=== PATIENT | male | born 1965 | race Caucasian/White ===

== ENCOUNTER 2019-03-25 10:45 | Emergency (ER) | payer OTHER ==
[2019-03-25 11:20] VITALS: BP 118/83; PULSE 78; RESP 18; TEMP 98.3
[2019-03-25] MEDS ORDERED: ERYTHROMYCIN 5 MG/GM OPHTH OINT 3.5 GM TUBE RIGHT EYE STA (11:31)
[2019-03-25] MEDS ORDERED: PROPARACAINE 0.5% OPHTH DROPS 15 ML BTL RIGHT EYE STA (11:32)
--- NOTE | 2019-03-25 12:10 | ED ---
General Adult HPI - General Chief complaint: Eye Problems Stated complaint: rt eye problem Time Seen by Provider: 03/25/19 11:31 Source: patient, RN notes reviewed Mode of arrival: ambulatory Limitations: no limitations - History of Present Illness Initial comments: Camilo is a 53-year-old male with the chief complaint of right eye irritation. Patient states he had some drainage out of the right eye when he woke up this morning. RIght lower lid is also a little bit painful to. Patient states he has surgery scheduled for a lipoma removal in a couple days so he came because he was told if he has any infection he cannot have his surgery. Denies any visual changes. Denies any pain of the eye itself.Patient has no other complaints at this time including shortness of breath, chest pain, abdominal pain, nausea or vomiting, headache, or visual changes. - Related Data Home Medications Medication Instructions Recorded Confirmed Gabapentin 600 mg PO TID 03/23/19 03/23/19 Ibuprofen 800 mg PO Q8H 03/23/19 03/23/19 Loratadine [Claritin] 10 mg PO DAILY 03/23/19 03/23/19 Sertraline [Zoloft] 50 mg PO DAILY 03/23/19 03/23/19 Tamsulosin [Flomax] 0.4 mg PO DAILY 03/23/19 03/23/19 hydrOXYzine HCL [Atarax] 25 mg PO HS 03/23/19 03/23/19 tiZANidine [Zanaflex] 4 mg PO TID 03/23/19 03/23/19 Allergies Allergy/AdvReac Type Severity Reaction Status Date / Time tetanus and diphtheria Allergy as Verified 03/23/19 14:18 toxoids child,when cultured on egg; No further problems since RUBBER Allergy Severe Swelling Uncoded 03/23/19 14:18 of mouth with dental bands years ago Review of Systems ROS Statement: Those systems with pertinent positive or pertinent negative responses have been documented in the HPI. ROS Other: All systems not noted in ROS Statement are negative. Past Medical History Past Medical History: Hearing Disorder / Deafness, Musculoskeletal Disorder, Prostate Disorder Additional Past Medical History / Comment(s): RECENT BRAIN ANEURYSM FOUND ON MRI. HX 200# FALL ONTO HEAD IN 2016, HAS BAD HEADACHES, COMPRESSED CERVICAL VERTEBRAES C 1-2, 3-6. "OCC BLACK OUTS." HAD PAIN INJECTION IN HIP 03/22/19. LT ARM LIPOMA. SOME HEARING LOSS. BPH. History of Any Multi-Drug Resistant Organisms: None Reported Past Surgical History: Orthopedic Surgery Additional Past Surgical History / Comment(s): COLONOSCOPY. DAYTON BICEPS RECONNECTED. RT KNEE SCOPE X3. EXC CYST IN NECK. PENILE OPENING ENLARGED. INJECTIONS IN BRAIN, NECK. Past Anesthesia/Blood Transfusion Reactions: Motion Sickness Additional Past Anesthesia/Blood Transfusion Reaction / Comment(s): SICKNESS ON LARGE SHIP Past Psychological History: ADD/ADHD, Anxiety, Depression Smoking Status: Current some day smoker Past Alcohol Use History: None Reported Past Drug Use History: None Reported - Past Family History Mother Family Medical History: Cancer Additional Family Medical History / Comment(s): COLON CA General Exam Limitations: no limitations General appearance: alert, in no apparent distress Head exam: Present: atraumatic, normocephalic, normal inspection Eye exam: Present: PERRL, EOMI, periorbital swelling (Patient has a small subcentimeter hordeolum noted of the right lower medial eyelid. ). Absent: scleral icterus, conjunctival injection ENT exam: Present: normal exam, mucous membranes moist Neck exam: Present: normal inspection. Absent: tenderness, meningismus, lymphadenopathy Respiratory exam: Present: normal lung sounds bilaterally. Absent: respiratory distress, wheezes, rales, rhonchi, stridor Cardiovascular Exam: Present: regular rate, normal rhythm, normal heart sounds. Absent: systolic murmur, diastolic murmur, rubs, gallop, clicks Neurological exam: Present: alert, oriented X3, CN II-XII intact Psychiatric exam: Present: normal affect, normal mood Course Vital Signs 03/25/19 11:17 Temperature 98.3 F Pulse Rate 78 Respiratory 18 Rate Blood Pressure 118/83 O2 Sat by Pulse 98 Oximetry Medical Decision Making - Medical Decision Making 53-year-old male presents to the emergency department for a chief complaint of right lower eyelid pain. Patient states he woke up today and he had crusting in his eye. On exam patient has hordeolum noted to the right medial lower eyelid. No erythema of the conjunctiva. The eye was stained with fluorescein stain, no evidence of abrasion or ulcer. The eye otherwise appears normal. Discussed warm compresses. Patient will be given erythromycin ointment to help soften this thigh as well as prevent further infection. Patient will follow up with primary care in 1-2 days. He will return here if he has any worsening symptoms. Disposition Clinical Impression: Hordeolum Disposition: HOME SELF-CARE Condition: Good Instructions (If sedation given, give patient instructions): Stye (ED), Warm Compress or Soak (ED) Additional Instructions: Please apply warm compresses to the left eye multiple times daily. You may use ointment for comfort 4 times daily for up to 7 days. Follow up with primary care in 1-2 days. Return here for having worsening symptoms. Is patient prescribed a controlled substance at d/c from ED?: No Referrals: Evelyne Celaya MD [Primary Care Provider] - 1-2 days Time of Disposition: 12:10
== END 2019-03-25 12:23 | disposition home or self-care (01) ==
LOC: EC 10:45
DX: H00.012 Hordeolum externum right lower eyelid (principal); H91.90 Unspecified hearing loss, unspecified ear; N40.0 Benign prostatic hyperplasia without lower urinary tract symptoms; F90.9 Attention-deficit hyperactivity disorder, unspecified type; F32.9 Major depressive disorder, single episode, unspecified; F41.9 Anxiety disorder, unspecified; Z86.018 Personal history of other benign neoplasm; F17.200 Nicotine dependence, unspecified, uncomplicated; Z79.1 Long term (current) use of non-steroidal anti-inflammatories (NSAID); Z79.899 Other long term (current) drug therapy; Z88.7 Allergy status to serum and vaccine; Z91.048 Other nonmedicinal substance allergy status
CPT/HCPCS: 99282

== ENCOUNTER 2019-03-27 05:44 | Day surgery (SDC) | payer OTHER ==
[2019-03-23 14:54] VITALS: BMI 29.9
[~2019-03-27 05:44] MED LIST: HEPARIN SODIUM,PORCINE 5,000 UNIT/ML 1 ML VIAL SQ ONE; LACTATED RINGERS 1,000 ML IV SCH; LIDOCAINE 1% 20 ML VIAL (10MG/ML) FOR IV START INTRADERMA PRN; Pre Op ABX Message 1 EACH MISC MISCELLANE ONE
[2019-03-27 06:43] VITALS: TEMP 98.6
[2019-03-27] MEDS ORDERED: BUPIVACAINE (PF) 0.25% 30 ML VIAL SQ ONE ×3 (07:32→08:15)
[2019-03-27] MEDS ORDERED: MIDAZOLAM 2 MG/2 ML VIAL ONE (07:49)
[2019-03-27] MEDS ORDERED: PROPOFOL 10 MG/ML 20 ML VIAL IV ONE (07:49)
[2019-03-27] MEDS ORDERED: fentaNYL (PF) 50 MCG/ML 2 ML AMP ONE (07:49)
[2019-03-27] MEDS ORDERED: KETAMINE 10 MG/ML 20 ML VIAL ONE (07:49)
--- NOTE | 2019-03-27 07:56 | P.GSHP ---
History of Present Illness H&P Date: 03/27/19 Chief Complaint: Left arm lipoma This a 53-year-old male who has developed a left arm lipoma just above his elbow. Patient points of pain and tenderness at the mass. Past Medical History Past Medical History: Hearing Disorder / Deafness, Musculoskeletal Disorder, Prostate Disorder Additional Past Medical History / Comment(s): RECENT BRAIN ANEURYSM FOUND ON MRI. HX 200# FALL ONTO HEAD IN 2016, HAS BAD HEADACHES, COMPRESSED CERVICAL VERTEBRAES C 1-2, 3-6. "OCC BLACK OUTS." HAD PAIN INJECTION IN HIP 03/22/19. LT ARM LIPOMA. SOME HEARING LOSS. BPH. History of Any Multi-Drug Resistant Organisms: None Reported Past Surgical History: Orthopedic Surgery Additional Past Surgical History / Comment(s): COLONOSCOPY. DAYTON BICEPS NANCY NNECTED. RT KNEE SCOPE X3. EXC CYST IN NECK. PENILE OPENING ENLARGED. INJECTIONS IN BRAIN, NECK. Past Anesthesia/Blood Transfusion Reactions: Motion Sickness Additional Past Anesthesia/Blood Transfusion Reaction / Comment(s): SICKNESS ON LARGE SHIP Past Psychological History: ADD/ADHD, Anxiety, Depression Smoking Status: Current some day smoker Past Alcohol Use History: None Reported Past Drug Use History: None Reported - Past Family History Mother Family Medical History: Cancer Additional Family Medical History / Comment(s): COLON CA Medications and Allergies Home Medications Medication Instructions Recorded Confirmed Type Gabapentin 600 mg PO TID 03/23/19 03/27/19 History Ibuprofen 800 mg PO Q8H 03/23/19 03/27/19 History Loratadine [Claritin] 10 mg PO DAILY 03/23/19 03/27/19 History Sertraline [Zoloft] 50 mg PO DAILY 03/23/19 03/27/19 History Tamsulosin [Flomax] 0.4 mg PO DAILY 03/23/19 03/27/19 History hydrOXYzine HCL [Atarax] 25 mg PO HS 03/23/19 03/27/19 History tiZANidine [Zanaflex] 4 mg PO TID 03/23/19 03/27/19 History Allergies Allergy/AdvReac Type Severity Reaction Status Date / Time tetanus and diphtheria Allergy as Verified 03/27/19 06:37 toxoids child,when cultured on egg; No further problems since RUBBER Allergy Severe Swelling Uncoded 03/27/19 06:37 of mouth with dental bands years ago Surgical - Exam Vital Signs Temp Pulse Resp BP Pulse Ox 98.6 F 72 16 122/72 97 03/27/19 06:42 03/27/19 06:42 03/27/19 06:42 03/27/19 06:42 03/27/19 06:42 - General well developed, well nourished, no distress - Eyes PERRL - ENT normal pinna - Neck no masses - Respiratory normal expansion - Cardiovascular Rhythm: regular - Abdomen Abdomen: soft, non tender - Integumentary 3 separate lipoma located just above the elbow left arm.
[2019-03-27 08:34] VITALS: PULSE 64
[2019-03-27 09:11] VITALS: BP 132/79; RESP 16
--- NOTE | 2019-03-30 14:01 | P.OP ---
Date of Procedure: 03/27/19 Preoperative Diagnosis: Left arm lipoma Postoperative Diagnosis: Left arm lipoma Procedure(s) Performed: Excision of left arm lipoma Anesthesia: MAC Surgeon: Afshin Echevarria Estimated Blood Loss (ml): 3 Pathology: other (Left arm lipoma) Condition: stable Disposition: PACU Description of Procedure: The patient's placed on the operating table in the supine position. His left arm was prepped and draped usual sterile fashion. The patient recently lipoma. The lipoma was located just above the elbow. Using 1% local Xylocaine the area was anesthetized. Then using a 15 blade the skin was incised and using blunt and sharp dissection with cautery the lipoma was dissected free. The specimens of pathology. The skin was closed interrupted 3-0 Monocryl suture. Dermabond was applied. Patient top she will well and was sent to recovery in stable condition.
== END 2019-03-27 09:23 | disposition home or self-care (01) ==
LOC: OR 05:44
PROVIDERS: ATTEND Surgery
DX: D17.22 Benign lipomatous neoplasm of skin and subcutaneous tissue of left arm (principal); H91.90 Unspecified hearing loss, unspecified ear; F17.210 Nicotine dependence, cigarettes, uncomplicated; Z80.0 Family history of malignant neoplasm of digestive organs; N40.0 Benign prostatic hyperplasia without lower urinary tract symptoms; F32.9 Major depressive disorder, single episode, unspecified; F90.9 Attention-deficit hyperactivity disorder, unspecified type; Z79.1 Long term (current) use of non-steroidal anti-inflammatories (NSAID); Z79.899 Other long term (current) drug therapy; Z88.7 Allergy status to serum and vaccine; Z88.8 Allergy status to other drugs, medicaments and biological substances
CPT/HCPCS: 88304; 11403; J2250; J1644; J3010; J2704

== ENCOUNTER → 2019-04-18 | Outpatient (CLI) | payer OTHER ==
--- NOTE | 2019-04-19 18:29 | CT ---
EXAMINATION TYPE: CT brain w con DATE OF EXAM: 04/18/2019 COMPARISON: [facility] labeled with the patient's pain 11/17/2018 INDICATION: Abnormal MRI. Headaches. DLP: 1100.8 mGycm, Automated exposure control for dose reduction was used. CONTRAST: 100 mL Isovue-300 CT of the brain is performed utilizing 3 mm thick sections through the posterior fossa and 3 mm thick sections through the remaining calvarium. Study is performed within 24 hours of arrival to the hosp ital. No abnormal hyperdensity is present to suggest an acute intracranial hemorrhage. No mass lesion is evident. No acute infarcts are evident. Pre and postcontrast imaging through the brain is unremarkable. Small amount of encephalomalacia of the right watershed region may be present. No abnormal enhancement evid ent. Attention is paid to the left clinoid. There is an aerated clinoid which can account for the appearan ce on the MRI examination. No suspicious aneurysm based on the CT images is evident. Ventricles and sulci are appropriate for the patient age. Paranasal sinuses and mastoid air cells within the [id number]-[id number] are clear. IMPRESSIONS: 1. No acute intracranial abnormality. 2. Aerated left clinoid accounts for the findings on MRI.
== END | disposition home or self-care (01) ==
LOC: RADCTMAIN 11:08
PROVIDERS: ATTEND Psychiatry & Neurology Neurology
DX: I67.1 Cerebral aneurysm, nonruptured (principal)
CPT/HCPCS: 70460; Q9967

== ENCOUNTER 2020-04-23 10:45 | Emergency (ER) | payer MEDICARE, OTHER ==
[2020-04-23] MEDS ORDERED: ASPIRIN 81 MG PO STA (11:12)
[2020-04-23 11:39] LABS: HCT 43.4 % (39.0-53.0); HGB 14.5 gm/dL (13.0-17.5); MCH 30.4 pg (25.0-35.0); MCHC 33.3 g/dL (31.0-37.0); MCV 91.3 fL (80.0-100.0); Mean Platelet Volume 6.7; Platelet Count 198 k/uL (150-450); RBC 4.76 m/uL (4.30-5.90); RDW 12.7 % (11.5-15.5); WBC 4.6 k/uL (3.8-10.6)
[2020-04-23 11:45] LABS: ALT 23 U/L (4-49); AST 32 U/L (17-59); African American GFR (CKD) >90 (>60 ml/min/1.73 sqM); Albumin 3.5 g/dL (3.5-5.0); Alkaline Phosphatase 49 U/L (38-126); Anion Gap 6 mmol/L; Blood Urea Nitrogen 15 mg/dL (9-20); Calcium 8.7 mg/dL (8.4-10.2); Carbon Dioxide 22 mmol/L (22-30); Chloride 109 mmol/L (98-107); Glucose 97 mg/dL (74-99); Magnesium 1.8 mg/dL (1.6-2.3); Non-African American GFR(CKD) >90 (>60 ml/min/1.73 sqM); Potassium 4.4 mmol/L (3.5-5.1); Sodium 137 mmol/L (137-145); Total Bilirubin 0.4 mg/dL (0.2-1.3); Total Protein 5.5 g/dL (6.3-8.2)
[2020-04-23 11:50] LABS: INR 0.9 (<1.2); Partial Thromboplastin Time 22.8 sec (22.0-30.0); Prothrombin Time 9.6 sec (9.0-12.0)
--- NOTE | 2020-04-23 11:50 | XR ---
EXAMINATION TYPE: XR chest 2V DATE OF EXAM: 04/23/2020 COMPARISON: None HISTORY: 54 year-old male chest pain TECHNIQUE: PA and lateral views FINDINGS: The cardiomediastinal silhouette, aorta, and pulmonary vasculature are within normal limits. Lungs an d pleural spaces are clear. Posterior simulator leads extend up beyond the [id number]. IMPRESSION: No acute cardiopulmonary process.
--- NOTE | 2020-04-23 12:06 | ED ---
Chest Pain HPI - General Chief Complaint: Chest Pain Stated Complaint: chest pain, swollen feet, poison ish Time Seen by Provider: 04/23/20 10:56 Source: patient Mode of arrival: ambulatory Limitations: no limitations - History of Present Illness Initial Comments: Patient is a 54-year-old male presenting to emergency Department with complaints of chest pain that has been intermittent throughout today as well as lower leg swelling. Patient states he's been having on and off chest pain for about 6 months lasting anywhere from a few seconds to a few minutes at a time. Patient describes it as tightening in the middle of his chest. He denies any radiation. He states he has not seen his doctor for these pains. Patient states today he had the pain again and it lasted longer than normal and then with the swelling of his ankles he decided to come into the ER. He denies history of heart disease, COPD, heart failure. He denies seeing a dirt shoveler. He states currently his chest pain is minimal, 2/10. He denies any trauma to his ankles. He does admit to some increasing shortness of breath over the past 6 months. He denies any coughing, denies fever or chills. He has no further complaints at this time. Upon arrival to the ER, his vital signs are stable. - Related Data Home Medications Medication Instructions Recorded Confirmed Ibuprofen 800 mg PO Q8H 03/23/19 04/23/20 Tamsulosin [Flomax] 0.4 mg PO DAILY 03/23/19 04/23/20 hydrOXYzine HCL [Atarax] 12.5 - 37.5 mg PO HS PRN 03/23/19 04/23/20 tiZANidine [Zanaflex] 4 mg PO Q6H 03/23/19 04/23/20 Butalbital/Aspirin/Caffeine 1 tab PO Q4H PRN 04/23/20 04/23/20 [Vbcwyg-Qoghrqs-Ghflmtgz 50-325-40 mg] Gabapentin [Neurontin] 900 mg PO TID 04/23/20 04/23/20 Sertraline [Zoloft] 150 mg PO DAILY 04/23/20 04/23/20 traZODone HCL 50 mg PO HS PRN 04/23/20 04/23/20 Allergies Allergy/AdvReac Type Severity Reaction Status Date / Time tetanus and diphtheria Allergy as Verified 04/23/20 12:06 toxoids child,when cultured on egg; No further problems since milk AdvReac GI UPSET Verified 04/23/20 12:09 RUBBER Allergy Severe Swelling Uncoded 03/27/19 06:37 of mouth with dental bands years ago Review of Systems ROS Statement: Those systems with pertinent positive or pertinent negative responses have been documented in the HPI. ROS Other: All systems not noted in ROS Statement are negative. EKG Findings - EKG Comments: EKG Findings:: Normal sinus rhythm, normal ECG, no signs of acute ischemia. Ventricular rate 72, KS interval 174, QT 390. Past Medical History Past Medical History: Hearing Disorder / Deafness, Musculoskeletal Disorder, Prostate Disorder Additional Past Medical History / Comment(s): RECENT BRAIN ANEURYSM FOUND ON MRI. HX 200# FALL ONTO HEAD IN 2016, HAS BAD HEADACHES, COMPRESSED CERVICAL VERTEBRAES C 1-2, 3-6. "OCC BLACK OUTS." HAD PAIN INJECTION IN HIP 03/22/19. LT ARM LIPOMA. SOME HEARING LOSS. BPH. History of Any Multi-Drug Resistant Organisms: None Reported Past Surgical History: Orthopedic Surgery Additional Past Surgical History / Comment(s): COLONOSCOPY. DAYTON BICEPS RECONNECTED. RT KNEE SCOPE X3. EXC CYST IN NECK. PENILE OPENING ENLARGED. INJECTIONS IN BRAIN, NECK. Past Anesthesia/Blood Transfusion Reactions: Motion Sickness Additional Past Anesthesia/Blood Transfusion Reaction / Comment(s): SICKNESS ON LARGE SHIP Past Psychological History: ADD/ADHD, Anxiety, Depression Smoking Status: Never smoker Past Alcohol Use History: None Reported Past Drug Use History: Marijuana - Past Family History Mother Family Medical History: Cancer Additional Family Medical History / Comment(s): COLON CA General Exam - General Exam Comments Initial Comments: GENERAL: Patient is well-developed and well-nourished. Patient is nontoxic and in no acute distress. HEAD: Atraumatic, normocephalic. EYES: Pupils equal round and reactive to light, extraocular movements intact, sclera anicteric, conjunctiva are normal. Eyelids were unremarkable. ENT: TMs normal, nares patent, oropharynx clear without exudates. Moist mucous membranes. NECK: Normal range of motion, supple without lymphadenopathy or JVD. LUNGS: Unlabored respirations. Breath sounds clear to auscultation bilaterally and equal. No wheezes rales or rhonchi. HEART: Regular rate and rhythm without murmurs, rubs or gallops. ABDOMEN: Soft, nontender, normoactive bowel sounds. No guarding, no rebound. No masses appreciated. : Deferred MUSCULOSKELETAL: Mild Bilateral lower leg edema. Normal extremities with adequate strength and normal range of motion. No clubbing or cyanosis. NEUROLOGICAL: Patient is alert and oriented x 3. Motor and sensory are also intact. Cranial nerves II through XII grossly intact. Symmetrical smile. Normal speech, normal gait. PSYCH: Normal mood, normal affect. SKIN: Warm, Dry, normal turgor, no rashes or lesions noted. Limitations: no limitations Course Vital Signs 04/23/20 04/23/20 10:54 12:13 Temperature 98.1 F Pulse Rate 79 77 Respiratory 16 16 Rate Blood Pressure 115/88 115/89 O2 Sat by Pulse 99 95 Oximetry Chest Pain [facility] Patient is a 54-year-old male here for chest pain that has been intermittent for the last 6 months but was lasting longer today. He is also having some bilateral lower leg edema and shortness of breath with exertion. His vital signs are stable. Exam is unremarkable. Chest x-ray shows no acute process, EKG appears normal, no signs of acute ischemia. Lab work is unremarkable, troponin is normal, BNP is normal. Given patient's complaints of chest pain, no recent heart workup, recommended admission with cardiac consult. Patient is agreement with this plan of care. We will obtain serial troponins, cardiac consult. Patient was accepted by Dr. Felix. Case discussed with Dr. Kovacs. Disposition Clinical Impression: Chest pain Disposition: ADMITTED IP TO THIS HOSP Condition: Stable Is patient prescribed a controlled substance at d/c from ED?: No Referrals: Warren Manning [Primary Care Provider] - 1-2 days Decision Date: 04/23/20 Decision Time: 13:00
[2020-04-23 12:43] LABS: Eosinophils # (M) 0.05 k/uL (0-0.7); Lymphocytes # (M) 1.38 k/uL (1.0-4.8); Monocytes # (M) 0.37 k/uL (0-1.0); Neutrophils # (M) 2.81 k/uL (1.3-7.7); Neutrophils % (M) 61 %; Nucleated Red Blood Cells 0 /100 WBC (0-0); Total Cells Counted 100
[2020-04-23] MEDS ORDERED: NITROGLYCERIN SL TABS 0.4 MG TAB SUBLINGUAL PRN (12:53)
[2020-04-23] MEDS ORDERED: methylPREDNISolone SOD SUCCI 125 MG/2 ML VIAL IM ONE (13:22)
[2020-04-23 13:27] VITALS: BP 127/84; PULSE 67; RESP 18; TEMP 97.7
[2020-04-24] MEDS ORDERED: ASPIRIN 325 MG TAB PO SCH (09:00)
== END 2020-04-23 13:37 | disposition other institution (70) ==
LOC: EC 10:45
DX: R07.9 Chest pain, unspecified (principal); M79.89 Other specified soft tissue disorders; R60.0 Localized edema; R06.02 Shortness of breath; N40.0 Benign prostatic hyperplasia without lower urinary tract symptoms; F41.9 Anxiety disorder, unspecified; F32.9 Major depressive disorder, single episode, unspecified; F90.9 Attention-deficit hyperactivity disorder, unspecified type; Z79.899 Other long term (current) drug therapy; Z88.7 Allergy status to serum and vaccine; Z91.011 Allergy to milk products; Z91.048 Other nonmedicinal substance allergy status
CPT/HCPCS: 36415; 93005; 83880; 80053; 83735; 84484; 85025; 85610; 85730; 71046; 99285; 96372; J2930

== ENCOUNTER → 2021-05-25 | Outpatient (CLI) | payer MEDICARE | END | disposition home or self-care (01) | LOC: LABWHC1 13:14 | PROVIDERS: ATTEND Psychiatry & Neurology Neurology | DX: Z01.818 Encounter for other preprocedural examination (principal); Z20.822 Contact with and (suspected) exposure to COVID-19 | CPT/HCPCS: U0003; C9803 ==

== ENCOUNTER → 2021-09-01 | Outpatient (CLI) | payer OTHER ==
[2021-09-01 17:05] LABS: Partial Thromboplastin Time 23.1 sec (22.0-30.0); Prothrombin Time 10.5 sec (9.0-12.0)
[2021-09-01 17:27] LABS: Appearance,Urine Cloudy (Clear); Bilirubin,Urine 1+ (Negative); Blood,Urine Negative (Negative); Color,Urine Yellow; Glucose,Urine (UA) Negative (Negative); Hyaline Casts,Urine 54 /lpf (0-2); Ketones,Urine Trace (Negative); Leukocyte Esterase,Urine Negative (Negative); Mucus,Urine Many /hpf; Nitrite,Urine Negative (Negative); Protein,Urine 3+ (Negative); RBC,Urine 12 /hpf (0-5); Specific Gravity,Urine 1.041 (1.001-1.035); Squamous Epithelial Cell,Urine 2 /hpf (0-4); WBC,Urine 2 /hpf (0-5)
[2021-09-01 23:10] LABS: Basophils # (A) 0.05 X 10*3/uL (0.00-0.10); Basophils % (A) 0.6 %; Eosinophils # (A) 0.23 X 10*3/uL (0.04-0.35); HCT 51.1 % (39.6-50.0); HGB 17.1 g/dL (13.0-17.0); Lymphocytes # (A) 2.05 X 10*3/uL (0.90-5.00); Lymphocytes % (A) 26.5 %; MCH 30.2 pg (27.0-32.0); MCHC 33.5 g/dL (32.0-37.0); MCV 90.1 fL (80.0-97.0); Mean Platelet Volume 9.1 fL (9.5-12.2); Monocytes # (A) 0.48 X 10*3/uL (0.20-1.00); Monocytes % (A) 6.2 %; Neutrophils # (A) 4.91 X 10*3/uL (1.80-7.70); Neutrophils % (A) 63.3 %; Platelet Count 261 X 10*3/uL (140-440); RBC 5.67 X 10*6/uL (4.40-5.60); RDW 13.2 % (11.5-14.5); WBC 7.75 X 10*3/uL (4.50-10.00)
[2021-09-02 01:20] LABS: ALT 16 U/L (10-49); AST 18 U/L (14-35); African American GFR (CKD) 98.3 (60.0-200.0); Albumin 4.3 g/dL (3.8-4.9); Albumin/Globulin Ratio 2.16 (1.60-3.17); Alkaline Phosphatase 61 U/L (41-126); BUN/Creat Ratio 12.83 Ratio (12.00-20.00); Blood Urea Nitrogen 12.7 mg/dL (9.0-27.0); Calcium 9.3 mg/dL (8.7-10.3); Carbon Dioxide 21.5 mmol/L (20.0-27.5); Chloride 106 mmol/L (96-109); Glucose 88 mg/dL (70-110); Non-African American GFR(CKD) 84.8 (60.0-200.0); Potassium 4.5 mmol/L (3.5-5.5); Sodium 141 mmol/L (135-145); Total Bilirubin <0.20 mg/dL (0.30-1.20); Total Protein 6.3 g/dL (6.2-8.2)
== END | disposition home or self-care (01) ==
LOC: LABWHC1 15:24
PROVIDERS: ATTEND Neurological Surgery
DX: G90.513 Complex regional pain syndrome I of upper limb, bilateral (principal); M54.2 Cervicalgia
CPT/HCPCS: 36415; 80053; 81001; 85025; 85610; 85730

== ENCOUNTER → 2021-09-15 | Outpatient (CLI) | payer MEDICARE | END | disposition home or self-care (01) | LOC: LABWHC1 10:20 | PROVIDERS: ATTEND Neurological Surgery | DX: G90.513 Complex regional pain syndrome I of upper limb, bilateral (principal); M54.2 Cervicalgia ==

== ENCOUNTER 2022-12-10 06:46 | Inpatient (IN) | payer MEDICARE ==
[~2022-12-10 06:46] MED LIST changes: +ACETAMINOPHEN TAB 500 MG TAB PO PRN; +DEXAMETHASONE SOD PHOSPHATE 4 MG/ML 1 ML VIAL IV ONE; -HEPARIN SODIUM,PORCINE 5,000 UNIT/ML 1 ML VIAL SQ ONE; +HEPARIN SODIUM,PORCINE/PF 5,000 UNIT/0.5 ML SYRINGE SQ PRN; -LACTATED RINGERS 1,000 ML IV SCH; +LIDOCAINE 1% (10MG/ML) FOR IV START INTRADERMA PRN; -LIDOCAINE 1% 20 ML VIAL (10MG/ML) FOR IV START INTRADERMA PRN; +ONDANSETRON 4 MG/2 ML VIAL IVP ONE; -Pre Op ABX Message 1 EACH MISC MISCELLANE ONE
[2022-12-10] MEDS ORDERED: METOCLOPRAMIDE 5 MG/ML 2 ML VIAL IVP PRN (07:00)
[2022-12-10] MEDS ORDERED: HYDROmorphone 0.5 MG/0.5 ML SYRINGE IVP PRN ×2 (07:00→10:17)
[2022-12-10 07:31] LABS: Glucose,Whole Blood 97 mg/dL (70-110)
[2022-12-10] MEDS: LACTATED RINGERS 1,000 ML IV SCH (07:37)
[2022-12-10] MEDS ORDERED: MIDAZOLAM 2 MG/2 ML VIAL IVP ONE (08:26)
--- NOTE | 2022-12-10 08:35 | P.GSHP ---
History of Present Illness H&P Date: 12/10/22 Chief Complaint: Incarcerated umbilical hernia 57-year-old male seen in the office last summer. Patient with a slowly enlarging tender umbilical hernia. Patient says it's worse with any lifting. It is gotten slightly larger. Past Medical History Past Medical History: Hearing Disorder / Deafness, Memory Impairment, Prostate Disorder, Syncope Additional Past Medical History / Comment(s): HX 200# FELL ONTO HEAD IN 2016, HAS BAD HEADACHES/SHOULDER AND NECK/SPINE PAIN, COMPRESSED CERVICAL VERTEBRAES C 1-2, 3-6. "OCC BLACK OUTS FROM PAIN" LT ARM LIPOMA. SOME HEARING LOSS BILATERALLY. BPH. MEMORY IMPAIRMENT PT STATES FROM GABAPENTIN, PT STATES HE WAS BORN WITHOUT HEARTBEAT AND RECEIVED CPR X 5 MINUTES. History of Any Multi-Drug Resistant Organisms: None Reported Past Surgical History: Orthopedic Surgery Additional Past Surgical History / Comment(s): COLONOSCOPY. DAYTON BICEPS RECONNECTED. RT KNEE SCOPE X3. EXC CYST IN NECK. PENILE OPENING ENLARGED. INJECTIONS IN NECK. Past Anesthesia/Blood Transfusion Reactions: Motion Sickness Additional Past Anesthesia/Blood Transfusion Reaction / Comment(s): SICKNESS ON [employer] Smoking Status: Former smoker - Past Family History Mother Family Medical History: Cancer Additional Family Medical History / Comment(s): COLON CA. MOTHER IS . Medications and Allergies Home Medications Medication Instructions Recorded Confirmed Type Ibuprofen 800 mg PO Q8H 03/23/19 12/07/22 History Tamsulosin [Flomax] 0.4 mg PO HS 03/23/19 12/07/22 History tiZANidine [Zanaflex] 4 mg PO Q6H PRN 03/23/19 12/07/22 History Butalbital/Aspirin/Caffeine 1 tab PO Q4H PRN 04/23/20 12/07/22 History [Ahdewr-Xiqejbi-Qlxvnlzu 50-325-40 mg] Gabapentin [Neurontin] 1,200 mg PO TID 04/23/20 12/07/22 History Sertraline [Zoloft] 150 mg PO QAM 04/23/20 12/07/22 History traZODone HCL 50 mg PO HS PRN 04/23/20 12/07/22 History Ascorbic Acid [Vitamin C chew] 500 mg PO QAM 12/07/22 12/07/22 History HYDROcodone/APAP 10-325MG [Ewing 1 tab PO TID PRN 12/07/22 12/07/22 History 10-325] Pseudoephedrine HCl [Sudafed 240 mg PO QAM PRN 12/07/22 12/07/22 History 24-Hour] Vitamin B Complex 1 capsule PO QAM 12/07/22 12/07/22 History guaiFENesin-DM 600/30MG [Mucinex 1 tab PO QAM 12/07/22 12/07/22 History Dm] Allergies Allergy/AdvReac Type Severity Reaction Status Date / Time tetanus and diphtheria Allergy as Verified 12/10/22 07:17 toxoids child,when cultured on egg; No further problems since milk AdvReac GI UPSET Verified 12/10/22 07:17 RUBBER Allergy Severe Swelling Uncoded 12/10/22 07:17 of mouth with dental bands years ago Surgical - Exam Vital Signs Temp Pulse Resp BP Pulse Ox 97.8 F 77 16 130/78 98 12/10/22 07:19 12/10/22 07:19 12/10/22 07:19 12/10/22 07:19 12/10/22 07:19 Physical exam: General: Well-developed, well-nourished HEENT: Normocephalic, sclerae nonicteric Abdomen: Nontender, nondistended, incarcerated umbilical hernia Extremities: No edema Neuro: Alert and oriented Assessment and Plan (1) Incarcerated umbilical hernia Narrative/Plan: 57-year-old male with incarcerated umbilical hernia. We'll proceed with open repair incarcerated umbilical hernia with possible mesh. Risks of bleeding, infection, recurrence, bladder and bowel injury, numbness, nerve injury were discussed with the patient. The patient understands and wishes to proceed. Current Visit: Yes Status: Acute Code(s): K42.0 - UMBILICAL HERNIA WITH OB STRUCTION, WITHOUT GANGRENE SNOMED Code(s): 950004256
[2022-12-10] MEDS ORDERED: NEOSTIGMINE 1 MG/ML 10 ML VIAL ONE (08:54)
[2022-12-10] MEDS ORDERED: MIDAZOLAM 2 MG/2 ML VIAL ONE (08:54)
[2022-12-10] MEDS ORDERED: GLYCOPYRROLATE 0.2 MG/ML 2 ML VIAL ONE (08:54)
[2022-12-10] MEDS ORDERED: PROPOFOL 10 MG/ML 20 ML VIAL IV ONE (08:54)
[2022-12-10] MEDS ORDERED: KETAMINE 10 MG/ML 20 ML VIAL ONE (08:54)
[2022-12-10] MEDS ORDERED: LIDOCAINE 2% INJ 20 MG/ML (2 ML VIAL) ONE (08:54)
[2022-12-10] MEDS ORDERED: KETOROLAC 15 MG/ML 1 ML VIAL ONE (08:54)
[2022-12-10] MEDS ORDERED: ROCURONIUM 10 MG/ML (5 ML VIAL) IV ONE (08:54)
[2022-12-10] MEDS ORDERED: fentaNYL (PF) 50 MCG/ML 2 ML AMP ONE (08:54)
[2022-12-10] MEDS ORDERED: SUCCINYLCHOLINE CHLORIDE 200 MG/10 ML VIAL IV ONE (08:54)
[2022-12-10] MEDS ORDERED: BUPIVACAIN-EPI 0.25%-1:200,000 30 ML VIAL SQ ONE (08:58)
[2022-12-10] MEDS ORDERED: LACTATED RINGERS 1,000 ML IV ONE (09:48)
[2022-12-10] MEDS ORDERED: ACETAMINOPHEN TAB 325 MG TAB PO PRN (10:17)
[2022-12-10] MEDS ORDERED: NALOXONE 0.4 MG/ML 1 ML VIAL IV PRN (10:17)
[2022-12-10] MEDS ORDERED: HYDROmorphone 1 MG/ML 1 ML SYRINGE IVP PRN (10:17)
[2022-12-10] MEDS ORDERED: HYDROcodone/APAP 5-325MG 1 EACH TAB PO PRN ×2 (10:17)
--- NOTE | 2022-12-10 10:25 | P.OP ---
Date of Procedure: 12/10/22 Procedure(s) Performed: PREOPERATIVE DIAGNOSIS: Incarcerated umbilical hernia POSTOPERATIVE DIAGNOSIS: Same PROCEDURE: Open repair incarcerated umbilical hernia with mesh SURGEON: Dr. Wells ANESTHESIA: General OPERATIVE PROCEDURE DETAILS: The patient was placed in the operating table in the supine position. A left sided periumbilical incision was made using the scalpel. The subcutaneous tissues were dissected bluntly and with cautery. The hernia sac was identified. The umbilical attachments to the fascia were divided using electrocautery. The hernia sac was excised. The defect in the fascia measured 2.2x1.2 cm. The fat overlying the fascia was dissected. No additional defects were seen. The preperitoneal space was then dissected using blunt dissection and electrocautery. The 4.3 cm ventral ex mesh was placed beneath the fascia and sutured in place using trans-fascial 0 Ethibond sutures. The defect was closed using interrupted [id number] 0 Ethibond mattress sutures. The subcutaneous tissues were reapproximated using inverted 2-0 & 3-0 Vicryl sutures. The umbilicus was tacked back down to the fascia using a 2-0 Vicryl suture. The skin was closed using [place]. Sterile dressings were then applied. In this particular case just as we had finished closing fascia of the patient suddenly went into ventricular fibrillation. Chest compressions were immediately initiated. Chest compressions continued for about 40-60 seconds. There were then held and the monitor demonstrated return of normal rhythm. The patient had a stable blood pressure at that time as well. He was not defibrillated. Patient was ultimately extubated and taken to the recovery room. He is doing well. Cardiology has been consulted. Family was informed of the events. TYPE OF MESH USED: 4.3 ventral ex LOCATION OF MESH: Sub-lay FIXATION: 0 Ethibond trans-fascial sutures PREOPERATIVE DISCUSSION ON SMOKING CESSASTION: Yes PREOPERATIVE DISCUSSION ON MORBID OBESITY: Yes PREOPERATIVE DISCUSSION ON APPROPRIATE USE OF NARCOTIC USE: Yes PREOPERATIVE EDUCATION: Multi Modal, Smoking Cessation and Weight Loss with BMI over 35. DISPOSITION: Stable to recovery room
[2022-12-10 10:27] LABS: Glucose,Whole Blood 93 mg/dL (70-110)
[2022-12-10 11:03] LABS: HCT 40.8 % (39.0-53.0); HGB 13.6 gm/dL (13.0-17.5); MCH 30.7 pg (25.0-35.0); MCHC 33.3 g/dL (31.0-37.0); MCV 92.1 fL (80.0-100.0); Mean Platelet Volume 7.1; Platelet Count 208 k/uL (150-450); RBC 4.43 m/uL (4.30-5.90); RDW 13.4 % (11.5-15.5); WBC 4.4 k/uL (3.8-10.6)
[2022-12-10 11:11] LABS: ALT 45 U/L (4-49); AST 37 U/L (17-59); African American GFR (CKD) >90 (>60 ml/min/1.73 sqM); Albumin 3.3 g/dL (3.5-5.0); Alkaline Phosphatase 47 U/L (38-126); Anion Gap 3 mmol/L; Blood Urea Nitrogen 14 mg/dL (9-20); Calcium 8.6 mg/dL (8.4-10.2); Carbon Dioxide 28 mmol/L (22-30); Chloride 107 mmol/L (98-107); Glucose 109 mg/dL (74-99); Non-African American GFR(CKD) >90 (>60 ml/min/1.73 sqM); Potassium 4.7 mmol/L (3.5-5.1); Sodium 138 mmol/L (137-145); Total Bilirubin 0.3 mg/dL (0.2-1.3); Total Protein 5.7 g/dL (6.3-8.2)
[2022-12-10] MEDS ORDERED: ALPRAZolam 0.5 MG TAB PO PRN (12:36)
[2022-12-10] MEDS ORDERED: NITROGLYCERIN SL TABS 0.4 MG TAB SUBLINGUAL PRN (12:36)
[2022-12-10] MEDS ORDERED: ALPRAZolam 0.25 MG TAB PO PRN (12:36)
--- NOTE | 2022-12-10 13:03 | P.CRDCN ---
History of Present Illness Consult date: 12/10/22 History of present illness: HISTORY OF PRESENT ILLNESS: This is a 57-year-old male with a past medical history significant for anxiety, ADD, former nicotine dependence, syncope, headaches, and degenerative disc disease. 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 We have been asked to see the patient in consultation for ventricular fibrillation. the patient underwent open repair of incarcerated umbilical hernia with mesh today with Dr. Wells. At the end of the case as they were just closing the fascia, the patient suddenly went into ventricular fibrillation. Chest compressions were immediately initiated. Chest compressions continued for approximately 1 minute and the patient returned to normal sinus mechanism. He did not require defibrillation. The patient was extubated and taken to the recovery room and cardiology was consulted for further evaluation. According to the recovery nurse, there are no telemetry tracings available for review as she stated the OR telemetry monitors are unable to save or print events. Patient examined at the bedside in the recovery room. patient currently denies chest pain or pressure. He denies shortness of breath. Patient gives a history of having 3-4 syncopal episodes in his lifetime which were all secondary to severe pain. * EKG reveals sinus mechanism with no signs of acute ischemia * Laboratory data: W BC 4.4. Hemoglobin 13.6. Platelet count 208. Sodium 138. Potassium 4.7. BUN 14. Creatinine 0.77. Troponin negative 1. * Current home cardiac medications include none * No previous echocardiogram on file * Cardiac catheterization history: patient denies REVIEW OF SYSTEMS: At the time of my exam: CONSTITUTIONAL: Denies fever or chills. HEENT: Denies blurred vision, vision changes, or eye pain. Denies hemoptysis CARDIOVASCULAR: Denies chest pain. Denies orthopnea. Denies PND. Denies palpitations RESPIRATORY: Denies shortness of breath. GASTROINTESTINAL: Denies abdominal pain. Denies nausea or vomiting. HEMATOLOGIC: Denies bleeding disorders. GENITOURINARY: Denies any blood in urine. SKIN: Denies pruitis. Denies rash. PHYSICAL EXAM: VITAL SIGNS: Reviewed. GENERAL: Well-developed in no acute distress. HEENT: Head is normocephalic. Pupils are equal, round. Sclerae anicteric. Mucous membranes of the mouth are moist. Neck supple. No JVD or thyromegaly LUNGS: Respirations even and unlabored. Lungs essentially clear to auscultation bilaterally. HEART: Regular rate and rhythm. S1 and S2 heard. ABDOMEN: Soft. Abdominal binder present. EXTREMITIES: Normal range of motion. No clubbing or cyanosis. Peripheral pulses intact. No lower extremity edema NEUROLOGIC: Awake and alert. Oriented x 3. ASSESSMENT: Status post open repair of incarcerated umbilical hernia with mesh Ventricular fibrillation, with return to sinus mechanism with 1 minute of chest compressions, not requiring defibrillation History of syncope Anxiety ADD History of headaches History of syncope, appears to be vasovagal in nature secondary to severe pain Degenerative disc disease Occasional marijuana use PLAN: Obtain 2D echo to assess cardiac structure and function Continue telemetry monitoring to assess for arrhythmias Begin metoprolol succinate 12.5 mg daily. Increase as heart rate will tolerate. Patient to undergo cardiac cath on Tuesday with Dr. Lozoya Further recommendations pending patient course Nurse practitioner note has been reviewed by physician. Signing provider agrees with the documented findings, assessment, and plan of care. Past Medical History Past Medical History: Hearing Disorder / Deafness, Memory Impairment, Prostate Disorder, Syncope Additional Past Medical History / Comment(s): HX 200# FELL ONTO HEAD IN 2016, HAS BAD HEADACHES/SHOULDER AND NECK/SPINE PAIN, COMPRESSED CERVICAL VERTEBRAES C 1-2, 3-6. "OCC BLACK OUTS FROM PAIN" LT ARM LIPOMA. SOME HEARING LOSS BILATERALLY. BPH. MEMORY IMPAIRMENT PT STATES FROM GABAPENTIN, PT STATES HE WAS BORN WITHOUT HEARTBEAT AND RECEIVED CPR X 5 MINUTES. History of Any Multi-Drug Resistant Organisms: None Reported Past Surgical History: Orthopedic Surgery Additional Past Surgical History / Comment(s): COLONOSCOPY. [place] BICEPS RECONNECTED. RT KNEE SCOPE X3. EXC CYST IN NECK. PENILE OPENING ENLARGED. INJECTIONS IN NECK. Past Anesthesia/Blood Transfusion Reactions: Motion Sickness Additional Past Anesthesia/Blood Transfusion Reaction / Comment(s): SICKNESS ON LARGE SHIP Smoking Status: Former smoker - Past Family History Mother Family Medical History: Cancer Additional Family Medical History / Comment(s): COLON CA. MOTHER IS . Medications and Allergies Home Medications Medication Instructions Recorded Confirmed Type Ibuprofen 800 mg PO Q8H 03/23/19 12/07/22 History Tamsulosin [Flomax] 0.4 mg PO HS 03/23/19 12/07/22 History tiZANidine [Zanaflex] 4 mg PO Q6H PRN 03/23/19 12/07/22 History Butalbital/Aspirin/Caffeine 1 tab PO Q4H PRN 04/23/20 12/07/22 History [Uzbleb-Xbdeaga-Jgsamyuo 50-325-40 mg] Gabapentin [Neurontin] 1,200 mg PO TID 04/23/20 12/07/22 History Sertraline [Zoloft] 150 mg PO QAM 04/23/20 12/07/22 History traZODone HCL 50 mg PO HS PRN 04/23/20 12/07/22 History Ascorbic Acid [Vitamin C chew] 500 mg PO QAM 12/07/22 12/07/22 History HYDROcodone/APAP 10-325MG [P[place] 1 tab PO TID PRN 12/07/22 12/07/22 History 10-325] Pseudoephedrine HCl [Sudafed 240 mg PO QAM PRN 12/07/22 12/07/22 History 24-Hour] Vitamin B Complex 1 capsule PO QAM 12/07/22 12/07/22 History guaiFENesin-DM 600/30MG [Mucinex 1 tab PO QAM 12/07/22 12/07/22 History Dm] Allergies Allergy/AdvReac Type Severity Reaction Status Date / Time tetanus and diphtheria Allergy as Verified 12/10/22 07:17 toxoids child,when cultured on egg; No further problems since milk AdvReac GI UPSET Verified 12/10/22 07:17 RUBBER Allergy Severe Swelling Uncoded 12/10/22 07:17 of mouth with dental bands years ago Physical Exam Vitals: Vital Signs Temp Pulse Resp BP Pulse Ox 12/10/22 08:41 79 16 121/79 95 12/10/22 07:19 97.8 F 77 16 130/78 98 Intake and Output 12/09/22 12/10/22 12/10/22 22:59 06:59 14:59 Intake Total 1100 Output Total 5 Balance 1095 Intake: IV 1100 Output: Estimated Blood Loss 5 Other: Weight 111.8 kg Results 12/10/22 10:18 12/10/22 10:18 Current Medications Generic Name Dose Route Start Last Admin Trade Name Freq PRN Reason Stop Dose Admin Acetaminophen 650 mg 12/10/22 10:17 Acetaminophen Tab 325 Mg Tab PO 01/09/23 10:18 Q6HR PRN Mild Pain or Fever >= 100.5 Hydrocodone Bitart/Acetaminophen 1 each 12/10/22 10:17 Hydrocodone/Apap 5-325mg 1 Each Tab PO 01/09/23 10:18 Q4HR PRN Moderate Pain (Scale 4 to 6) Hydrocodone Bitart/Acetaminophen 2 each 12/10/22 10:17 Hydrocodone/Apap 5-325mg 1 Each Tab PO 01/09/23 10:18 Q6HR PRN Severe Pain (Scale 7 to 10) Heparin Sodium (Porcine) 5,000 unit 12/10/22 16:00 Heparin Sodium,Porcine/Pf 5,000 Unit/0.5 Ml Syringe SQ 01/09/23 16:01 Q8HR CAL Hydromorphone HCl 0.5 mg 12/10/22 07:00 Hydromorphone 0.5 Mg/0.5 Ml Syringe IVP 12/10/22 23:00 Q5M PRN Phase 1 or 2 - Pain Control Hydromorphone HCl 0.5 mg 12/10/22 10:17 Hydromorphone 0.5 Mg/0.5 Ml Syringe IVP 01/09/23 10:18 Q3HR PRN Moderate Pain (Scale 4 to 6) Hydromorphone HCl 1 mg 12/10/22 10:17 Hydromorphone 1 Mg/Ml 1 Ml Syringe IVP 01/09/23 10:18 Q4HR PRN Severe Pain (Scale 7 to 10) Lactated Ringer's 1,000 mls @ 20 mls/hr 12/10/22 05:59 12/10/22 07:37 Lactated Ringers IV 01/09/23 06:00 1,000 mls .Q24H CAL Administration Potassium Chloride/Dextrose/Sod Cl 1,000 mls @ 50 mls/hr 12/10/22 10:30 D5%-1/2ns-Kcl 20 Meq/L Iv Solution IV 01/09/23 10:31 .Q20H CAL Ketorolac Tromethamine 15 mg 12/10/22 12:00 Ketorolac 15 Mg/Ml 1 Ml Vial IVP 12/12/22 06:01 Q6HR CAL Lidocaine HCl 0.1 ml 12/10/22 05:59 Lidocaine 1% (10mg/Ml) For Iv Start INTRADERMA 01/09/23 06:00 PER PROTOCOL PRN IV Start Metoclopramide HCl 10 mg 12/10/22 07:00 Metoclopramide 5 Mg/Ml 2 Ml Vial IVP 12/10/22 23:00 ONCE PRN Phase 1 or 2 - Nausea/Vomiting Naloxone HCl 0.2 mg 12/10/22 10:17 Naloxone 0.4 Mg/Ml 1 Ml Vial IV 01/09/23 10:18 Q2M PRN Opioid Reversal Intake and Output 12/09/22 12/10/22 12/10/22 22:59 06:59 14:59 Intake Total 1100 Output Total 5 Balance 1095 Intake: IV 1100 Output: Estimated Blood Loss 5 Other: Weight 111.8 kg Patient Weight 12/11/22 06:59 Weight 111.8 kg
[2022-12-10] MEDS: METOPROLOL SUCCINATE (ER) 25 MG TAB.ER.24H PO SCH (13:43)
[2022-12-10] MEDS: KETOROLAC 15 MG/ML 1 ML VIAL IVP SCH ×3 (13:43→23:20)
[2022-12-10] MEDS: D5-0.45% NACL WITH KCL 20MEQ/L 1,000 ML IV SCH (13:47)
[2022-12-10 14:01] LABS: Basophils # (M) 0.04 k/uL (0-0.2); Eosinophils # (M) 0.04 k/uL (0-0.7); Lymphocytes # (M) 0.48 k/uL (1.0-4.8); Monocytes # (M) 0.22 k/uL (0-1.0); Neutrophils # (M) 3.61 k/uL (1.3-7.7); Neutrophils % (M) 82 %; Nucleated Red Blood Cells 0 /100 WBC (0-0); RBC Morphology Normal; Total Cells Counted 100
[2022-12-10] MEDS: SERTRALINE 50 MG TAB PO SCH (15:06)
[2022-12-10] MEDS: HEPARIN SODIUM,PORCINE/PF 5,000 UNIT/0.5 ML SYRINGE SQ SCH ×2 (15:06→23:20)
[2022-12-10] MEDS: GABAPENTIN 300 MG CAP PO SCH ×2 (15:06→20:15)
[2022-12-10] MEDS ORDERED: GABAPENTIN 300 MG CAP PO SCH (16:00)
[2022-12-10] MEDS: TAMSULOSIN 0.4 MG CAP.ER.24H PO SCH ×2 (16:11→20:15)
[2022-12-10 19:21] LABS: Chol/HDL Ratio 2.95 Ratio; LDL Cholesterol,Calculated 93.3 mg/dL (0.0-131.0); VLDL Calculation 12.54 mg/dL (5.00-40.00)
--- NOTE | 2022-12-10 19:35 | P.CONS ---
History of Present Illness - Reason for Consult Consult date: 12/10/22 [facility] Requesting physician: Gilmar Wells - Chief Complaint CPR - History of Present Illness Patient is a 57-year-old male with cervical disc disease, memory impairment, and BPH who presented to the hospital for open repair of incarcerated umbilical hernia with mesh. Apparently during the operation the patient went into ventricular fibrillation as they were closing the fascia. He did require some chest compressions. After approximately 1 minute the patient had return of normal sinus rhythm. He did not receive defibrillation. Patient was extubated and taken to recovery. Unfortunately the OR telemetry monitors are unable to save or print events therefor no rhythm strip is available for interpretation. Patient seen and examined at bedside. He is feeling wonderful. He denies any pain. No chest pain, no shortness of breath. He states that he runs or walks 3 miles a day. He goes to the gym every day. He has been very active his whole life. He doesn't feel he could have had an intraoperative arrhythmia. He is having some abdominal pain that is well controlled. Vital signs reviewed General: nontoxic, no distress, appears at stated age Derm: warm, dry Eyes: EOMI, no lid lag, anicteric sclera, pupils equal round reactive to light ENT: Nose and ears atraumatic, no thrush, no pharyngeal erythema Cardiovascular: S1S2 reg, no murmur, positive posterior tibial pulse bilateral, no edema, capillary refill less than 2 seconds Lungs: clear to auscultation bilateral, no rhonchi, no rales, no wheeze, no accessory muscle use Abdominal: soft, +tender to palpation periumbilical, no guarding, no appreciable organomegaly, normal bowel sounds Ext: no gross muscle atrophy, muscle strength 5 out of 5 in all 4 extremities, no contractures Neuro: CN II-XII grossly intact, light touch intact all 4 extremities, finger to nose within normal limits, Psych: Alert, oriented, appropriate affect Assessment: Incarcerated umbilical hernia status post open repair with mesh Probable ventricular fibrillation arrest, less than 1 minute of chest compressions, not requiring defib Chronic: Anxiety ADHD Headache CHronic pain Prior syncopal episodes related to pain Degenerative disc disease Imaging: [] Data Review: Postoperative laboratory analysis. White blood cell count 4.4, hemoglobin 13.6, platelets 208, sodium 138, potassium 4.7, chloride 107, carbon dioxide 28, BUN 14, creatinine 0.77, troponin less than 0.012. Vital signs. Temperature 98.8, pulse 63, respirations 18, blood pressure 127/82, O2 sat 98% on room air EKG reveals normal sinus rhythm at a rate of [address]-T wave changes. Plan: -Telemetry -[place] 5/325 one to 2 tabs every 4-6 hours as needed for pain - check CXR due to recent CPR Neurontin 1200 mg 3 times daily -Dilaudid as needed for pain Toradol 15 mg every 6 hours scheduled -Zoloft 150 mg daily Flomax 0.4 mg at night -Cardiology note reviewed: Obtained 2-D echo, telemetry, start metoprolol 12.5 mg twice daily -Patient likely to undergo cath on Tuesday with Dr. Lozoya -Repeat CBC and CMP in a.m. given cardiac arrest Thank you for allowing us to participate in the care of this pleasant patient. Do not hesitate to contact us with questions. Someone can be reached from the [facility] hospitalist group all hours of the day at [phone] or via iTwixie. This dictation was prepared using [employer] voice recognition software. Though every attempt is made to correct errors during during dictation some may still exist. Past Medical History Past Medical History: Hearing Disorder / Deafness, Memory Impairment, Prostate Disorder, Syncope Additional Past Medical History / Comment(s): HX 200# FELL ONTO HEAD IN 2016, HAS BAD HEADACHES/SHOULDER AND NECK/SPINE PAIN, COMPRESSED CERVICAL VERTEBRAES C 1-2, 3-6. "OCC BLACK OUTS FROM PAIN" LT ARM LIPOMA. SOME HEARING LOSS BILATERALLY. BPH. MEMORY IMPAIRMENT PT STATES FROM GABAPENTIN, PT STATES HE WAS BORN WITHOUT HEARTBEAT AND RECEIVED CPR X 5 MINUTES. History of Any Multi-Drug Resistant Organisms: None Reported Past Surgical History: Orthopedic Surgery Additional Past Surgical History / Comment(s): COLONOSCOPY. DAYTON BICEPS RECONNECTED. RT KNEE SCOPE X3. EXC CYST IN NECK. PENILE OPENING ENLARGED. INJECTIONS IN NECK. Past Anesthesia/Blood Transfusion Reactions: Motion Sickness Additional Past Anesthesia/Blood Transfusion Reaction / Comm: SICKNESS ON LARGE SHIP Smoking Status: Former smoker - Past Family History Mother Family Medical History: Cancer Additional Family Medical History / Comment(s): COLON CA. MOTHER IS . Medications and Allergies Home Medications Medication Instructions Recorded Confirmed Type Ibuprofen 800 mg PO Q8H 03/23/19 12/07/22 History Tamsulosin [Flomax] 0.4 mg PO HS 03/23/19 12/07/22 History tiZANidine [Zanaflex] 4 mg PO Q6H PRN 03/23/19 12/07/22 History Butalbital/Aspirin/Caffeine 1 tab PO Q4H PRN 04/23/20 12/07/22 History [Exvhcv-Awurnem-Llrcyvyb 50-325-40 mg] Gabapentin [Neurontin] 1,200 mg PO TID 04/23/20 12/07/22 History Sertraline [Zoloft] 150 mg PO QAM 04/23/20 12/07/22 History traZODone HCL 50 mg PO HS PRN 04/23/20 12/07/22 History Ascorbic Acid [Vitamin C chew] 500 mg PO QAM 12/07/22 12/07/22 History HYDROcodone/APAP 10-325MG [[place] 1 tab PO TID PRN 12/07/22 12/07/22 History 10-325] Pseudoephedrine HCl [Sudafed 240 mg PO QAM PRN 12/07/22 12/07/22 History 24-Hour] Vitamin B Complex 1 capsule PO QAM 12/07/22 12/07/22 History guaiFENesin-DM 600/30MG [Mucinex 1 tab PO QAM 12/07/22 12/07/22 History Dm] Allergies Allergy/AdvReac Type Severity Reaction Status Date / Time tetanus and diphtheria Allergy as Verified 12/10/22 07:17 toxoids child,when cultured on egg; No further problems since milk AdvReac GI UPSET Verified 12/10/22 07:17 RUBBER Allergy Severe Swelling Uncoded 12/10/22 07:17 of mouth with dental bands years ago Physical Exam Osteopathic Statement: *. No significant issues noted on an osteopathic structural exam other than those noted in the History and Physical/Consult. Vitals: Vital Signs Temp Pulse Pulse Resp BP BP Pulse Ox 12/10/22 16:00 98.8 F 63 18 127/82 98 12/10/22 14:00 65 18 12/10/22 12:40 98.5 F 65 18 129/77 98 12/10/22 12:15 63 18 136/82 100 12/10/22 11:41 59 L 18 132/78 99 12/10/22 11:11 63 16 128/77 99 12/10/22 10:56 58 L 16 127/74 98 12/10/22 10:41 67 16 126/69 100 12/10/22 10:26 58 L 16 128/74 100 12/10/22 10:11 57 L 18 126/70 98 12/10/22 09:56 97.0 F L 65 16 140/81 99 12/10/22 08:41 79 16 121/79 95 12/10/22 07:19 97.8 F 77 16 130/78 98 Intake and Output 12/10/22 12/10/22 12/10/22 06:59 14:59 22:59 Intake Total 1250 1600 Output Total 180 350 Balance 1070 1250 Intake: IV 1250 Oral 1600 Output: Urine 175 350 Estimated Blood Loss 5 Other: Voiding Method Toilet Urinal Weight 111.8 kg Results CBC & Chem 7: 12/10/22 10:18 12/10/22 10:18 Labs: Abnormal Lab Results - Last 24 Hours (Table) 12/10/22 12/10/22 Range/Units 10:18 10:18 Lymphocytes # (Manual) 0.48 L (1.0-4.8) k/uL Glucose 109 H (74-99) mg/dL Total Protein 5.7 L (6.3-8.2) g/dL Albumin 3.3 L (3.5-5.0) g/dL
--- NOTE | 2022-12-10 20:15 | XR ---
EXAMINATION TYPE: XR chest 1V portable DATE OF EXAM: 12/10/2022 COMPARISON: 04/23/2020 HISTORY: Chest pain TECHNIQUE: Single view FINDINGS: Heart is normal. Lungs are clear. Diaphragm is normal. Bony thorax is intact. No pleural ef fusion. IMPRESSION: No active cardiopulmonary disease. Normal heart.
[2022-12-10] MEDS ORDERED: TAMSULOSIN 0.4 MG CAP.ER.24H PO SCH (21:00)
[2022-12-11] MEDS: KETOROLAC 15 MG/ML 1 ML VIAL IVP SCH ×4 (06:09→23:00)
[2022-12-11] MEDS: LACTATED RINGERS 1,000 ML IV SCH (06:30)
[2022-12-11] MEDS ORDERED: HEPARIN SODIUM,PORCINE 10,000 UNIT in SODIUM CHLORIDE 0.9% 1,000 ML IRRIGATION PRN (07:00)
[2022-12-11] MEDS ORDERED: HEPARIN SODIUM,PORCINE 2,500 UNIT in SODIUM CHLORIDE 0.9% 250 ML IRRIGATION PRN (07:00)
--- NOTE | 2022-12-11 07:49 | P.PN ---
Subjective Progress Note Date: 12/11/22 HISTORY OF PRESENT ILLNESS: This is a 57-year-old male with a past medical history significant for anxiety, ADD, former nicotine dependence, syncope, headaches, and degenerative disc disease. 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 We have been asked to see the patient in consultation for ventricular fibrillation. the patient underwent open repair of incarcerated umbilical hernia with mesh today with Dr. Wells. At the end of the case as they were just closing the fascia, the patient suddenly went into ventricular fibrillation. Chest compressions were immediately initia iraj. Chest compressions continued for approximately 1 minute and the patient returned to normal sinus mechanism. He did not require defibrillation. The patient was extubated and taken to the recovery room and cardiology was consulted for further evaluation. According to the recovery nurse, there are no telemetry tracings available for review as she stated the OR telemetry monitors are unable to save or print events. Patient examined at the bedside in the recovery room. patient currently denies chest pain or pressure. He denies shortness of breath. Patient gives a history of having 3-4 syncopal episodes in his lifetime which were all secondary to severe pain. * EKG reveals sinus mechanism with no signs of acute ischemia * Laboratory data: W BC 4.4. Hemoglobin 13.6. Platelet count 208. Sodium 138. Potassium 4.7. BUN 14. Creatinine 0.77. Troponin negative 1. * Current home cardiac medications include none * No previous echocardiogram on file * Cardiac catheterization history: patient denies 12/11 Patient is seen today in follow-up. Patient is feeling fine today. He has not had any further episodes of VF. Patient states that he normally walks 4 miles per day and has never had any symptoms with activity. He is not diabetic. He denies chest pain, shortness of breath, lightheadedness or dizziness. He denies any family history of some . Echocardiogram has not been obtained at this point. He is scheduled for cardiac catheterization on Tuesday. PHYSICAL EXAM: VITAL SIGNS: Reviewed. GENERAL: Well-developed in no acute distress. HEENT: Head is normocephalic. Pupils are equal, round. Sclerae anicteric. Mucous membranes of the mouth are moist. Neck supple. No JVD or thyromegaly LUNGS: Respirations even and unlabored. Lungs essentially clear to auscultation bilaterally. HEART: Regular rate and rhythm. S1 and S2 heard. ABDOMEN: Soft. Abdominal binder present. EXTREMITIES: Normal range of motion. No clubbing or cyanosis. Peripheral pulses intact. No lower extremity edema NEUROLOGIC: Awake and alert. Oriented x 3. ASSESSMENT: Status post open repair of incarcerated umbilical hernia with mesh Ventricular fibrillation, with return to sinus mechanism with 1 minute of chest compressions, not requiring defibrillation History of syncope Anxiety ADD History of headaches History of syncope, appears to be vasovagal in nature secondary to severe pain Degenerative disc disease Occasional marijuana use PLAN: Obtain 2D echo to assess cardiac structure and function Continue telemetry monitoring to assess for arrhythmias Continue metoprolol succinate 12.5 mg daily. Increase as heart rate will tolerate. Patient to undergo cardiac cath on Tuesday with Dr. Lozoya Further recommendations pending patient course Nurse practitioner note has been reviewed by physician. Signing provider agrees with the documented findings, assessment, and plan of care. Objective - Vital Signs Vital signs: Vital Signs Temp 98.0 F 12/11/22 04:00 Pulse 75 12/11/22 04:00 Resp 19 12/11/22 04:00 BP 118/75 12/11/22 04:00 Pulse Ox 95 12/11/22 04:00 FiO2 Intake & Output 12/10/22 12/11/22 12/11/22 18:59 06:59 18:59 Intake Total 2850 Output Total 530 1400 250 Balance 2320 -1400 -250 Weight 111.8 kg Intake: IV 1250 Oral 1600 Output: Urine 525 1400 250 Estimated Blood Loss 5 Other: Voiding Method Toilet Toilet Urinal Urinal - Labs CBC & Chem 7: 12/10/22 10:18 12/10/22 10:18 Labs: Abnormal Lab Results - Last 24 Hours (Table) 12/10/22 12/10/22 Range/Units 10:18 10:18 Lymphocytes # (Manual) 0.48 L (1.0-4.8) k/uL Glucose 109 H (74-99) mg/dL Total Protein 5.7 L (6.3-8.2) g/dL Albumin 3.3 L (3.5-5.0) g/dL
[2022-12-11] MEDS ORDERED: NON FORMULARY DRUG (Vitamin B Complex [Vitamin B Complex] 1 EACH Capsule) PO SCH (09:00)
[2022-12-11] MEDS: D5-0.45% NACL WITH KCL 20MEQ/L 1,000 ML IV SCH (09:05)
[2022-12-11] MEDS: GABAPENTIN 300 MG CAP PO SCH ×3 (09:15→19:44)
[2022-12-11] MEDS: HEPARIN SODIUM,PORCINE/PF 5,000 UNIT/0.5 ML SYRINGE SQ SCH ×3 (09:15→23:00)
[2022-12-11] MEDS: SERTRALINE 50 MG TAB PO SCH (09:15)
[2022-12-11] MEDS: ASCORBIC ACID 500 MG TAB PO SCH (09:16)
[2022-12-11] MEDS: METOPROLOL SUCCINATE (ER) 25 MG TAB.ER.24H PO SCH (09:16)
--- NOTE | 2022-12-11 09:21 | P.PN ---
Progress Note - Text Progress Note Date: 12/11/22 Patient's resting comfortably bed. He states he feels well. On exam vital signs are stable. Abdomen soft. Incision site is clean dry and intact. Status post repair of umbilical hernia. Patient will undergo workup of his V. tach by cardiology. He will be discharged home per cardiology.
--- NOTE | 2022-12-11 17:05 | P.PN ---
Subjective Progress Note Date: 12/11/22 (delayed charting seen at 1015) Patient is a 57-year-old male with cervical disc disease, memory impairment, and BPH who presented to the hospital for open repair of incarcerated umbilical hernia with mesh. Apparently during the operation the patient went into ventricular fibrillation as they were closing the fascia. He did require some chest compressions. After approximately 1 minute the patient had return of normal sinus rhythm. He did not receive defibrillation. Patient was extubated and taken to recovery. Unfortunately the OR telemetry monitors are unable to save or print events therefor no rhythm strip is available for interpretation. Patient seen and examined at bedside. He reports that he has had some intermittent sharp pain over the last several months in his left side that seems to get better when he moves his shoulder. He has chronic shoulder pain after work-related accident. He had no chest pain overnight, no shortness of breath, no nausea, no vomiting. Abdominal pain is controlled with current pain regimen. Vital signs reviewed General: nontoxic, no distress, appears at stated age Cardiovascular: S1S2 reg, no murmur, positive posterior tibial pulse bilateral, Lungs: CTA bilateral, no rhonchi, no rales , no accessory muscle use Abdominal: soft, nontender to palpation, no guarding, no appreciable organomegaly Ext: no gross muscle atrophy, no edema, no contractures, abdominal binder in place Neuro: CN II-XI grossly intact, no focal neuro deficits Psych: Alert, oriented, appropriate affect Assessment: Incarcerated umbilical hernia status post open repair with mesh Probable ventricular fibrillation arrest, less than 1 minute of chest compressions, not requiring defib Chronic: Anxiety ADHD Headache CHronic pain Prior syncopal episodes related to pain Degenerative disc disease Data Review: A.m. vital signs temperature 97.9, pulse 65, respirations 18, blood pressure 134/85, O2 sat 97% on room air Plan: -Cardiology note reviewed: Plan is for cardiac cath on Tuesday -Telemetry reviewed: No significant events -Await echocardiogram -Continue with metoprolol 12.5 mg daily -[place] 5/325 one to 2 tabs every 4-6 hours as needed for pain -Neurontin 1200 mg 3 times daily -Dilaudid as needed for pain -Toradol 15 mg every 6 hours scheduled -Zoloft 150 mg daily -Flomax 0.4 mg at night Thank you for allowing us to participate in the care of this pleasant patient. Do not hesitate to contact us with questions. Someone can be reached from the [facility] hospitalist group all hours of the day at [phone] or via perfect serve. This dictation was prepared using [employer] voice recognition software. Though every attempt is made to correct errors during during dictation some may still exist. Objective - Vital Signs Vital signs: Vital Signs Temp 98.6 F 12/11/22 16:00 Pulse 66 12/11/22 16:00 Resp 18 12/11/22 16:00 BP 132/79 12/11/22 16:00 Pulse Ox 96 12/11/22 16:00 FiO2 Intake & Output 12/10/22 12/11/22 12/11/22 18:59 06:59 18:59 Intake Total 2850 550 Output Total 530 1400 250 Balance 2320 -1400 300 Weight 111.8 kg Intake: IV 1250 Oral 1600 550 Output: Urine 525 1400 250 Estimated Blood Loss 5 Other: Voiding Method Toilet Toilet Toilet Urinal Urinal Urinal # Voids 3 - Labs CBC & Chem 7: 12/10/22 10:18 12/10/22 10:18
[2022-12-11] MEDS: TAMSULOSIN 0.4 MG CAP.ER.24H PO SCH (19:44)
[2022-12-11] MEDS ORDERED: LACTULOSE 20 GM/30 ML CUP PO ONE (20:03)
[2022-12-12] MEDS: KETOROLAC 15 MG/ML 1 ML VIAL IVP SCH (06:18)
[2022-12-12] MEDS: HEPARIN SODIUM,PORCINE/PF 5,000 UNIT/0.5 ML SYRINGE SQ SCH ×3 (09:03→23:47)
[2022-12-12] MEDS: LACTATED RINGERS 1,000 ML IV SCH (09:03)
[2022-12-12] MEDS: D5-0.45% NACL WITH KCL 20MEQ/L 1,000 ML IV SCH (09:03)
[2022-12-12] MEDS: SERTRALINE 50 MG TAB PO SCH (09:04)
[2022-12-12] MEDS: GABAPENTIN 300 MG CAP PO SCH ×3 (09:04→20:58)
[2022-12-12] MEDS: ASCORBIC ACID 500 MG TAB PO SCH (09:04)
[2022-12-12] MEDS: METOPROLOL SUCCINATE (ER) 25 MG TAB.ER.24H PO SCH (09:04)
[2022-12-12] MEDS ORDERED: METOPROLOL SUCCINATE (ER) 25 MG TAB.ER.24H PO STA (09:14)
--- NOTE | 2022-12-12 10:56 | P.PN ---
Subjective Progress Note Date: 12/12/22 HISTORY OF PRESENT ILLNESS: This is a 57-year-old male with a past medical history significant for anxiety, ADD, former nicotine dependence, syncope, headaches, and degenerative disc disease. Patient does not follow with a child support investigator. We have been asked to see the patient in consultation for ventricular fibrillation. the patient underwent open repair of incarcerated umbilical hernia with mesh today with Dr. Wells. At the end of the case as they were just closing the fascia, the patient suddenly went into ventricular fibrillation. Chest compressions were immediately initia iraj. Chest compressions continued for approximately 1 minute and the patient returned to normal sinus mechanism. He did not require defibrillation. The patient was extubated and taken to the recovery room and cardiology was consulted for further evaluation. According to the recovery nurse, there are no telemetry tracings available for review as she stated the OR telemetry monitors are unable to save or print events. Patient examined at the bedside in the recovery room. patient currently denies chest pain or pressure. He denies shortness of breath. Patient gives a history of having 3-4 syncopal episodes in his lifetime which were all secondary to severe pain. * EKG reveals sinus mechanism with no signs of acute ischemia * Laboratory data: W BC 4.4. Hemoglobin 13.6. Platelet count 208. Sodium 138. Potassium 4.7. BUN 14. Creatinine 0.77. Troponin negative 1. * Current home cardiac medications include none * No previous echocardiogram on file * Cardiac catheterization history: patient denies 12/11 Patient is seen today in follow-up. Patient is feeling fine today. He has not had any further episodes of VF. Patient states that he normally walks 4 miles per day and has never had any symptoms with activity. He is not diabetic. He denies chest pain, shortness of breath, lightheadedness or dizziness. He denies any family history of some . Echocardiogram has not been obtained at this point. He is scheduled for cardiac catheterization on Tuesday. 12/12 Patient denies having any chest pain or shortness of breath, no lightheadedness or dizziness, no nausea or vomiting. He does state that his mother has history of myocardial infarction and AICD which she was not aware of when asked previously. He is scheduled for cardiac catheterization on Tuesday with Dr. Lozoya. Echocardiogram has been obtained but report is pending at the time of this dictation. Heart rate has been in the 60s and 70s, blood pressure 139/86, pulse ox 96% on room air. PHYSICAL EXAM: VITAL SIGNS: Reviewed. GENERAL: Well-developed in no acute distress. HEENT: Head is normocephalic. Pupils are equal, round. Sclerae anicteric. Mucous membranes of the mouth are moist. Neck supple. No JVD or thyromegaly LUNGS: Respirations even and unlabored. Lungs essentially clear to auscultation bilaterally. HEART: Regular rate and rhythm. S1 and S2 heard. ABDOMEN: Soft. Abdominal binder present. EXTREMITIES: Normal range of motion. No clubbing or cyanosis. Peripheral pulses intact. No lower extremity edema NEUROLOGIC: Awake and alert. Oriented x 3. ASSESSMENT: Status post open repair of incarcerated umbilical hernia with mesh Ventricular fibrillation, with return to sinus mechanism with 1 minute of chest compressions, not requiring defibrillation History of syncope Anxiety ADD History of headaches History of syncope, appears to be vasovagal in nature secondary to severe pain Degenerative disc disease Occasional marijuana use PLAN: Obtain 2D echo to assess cardiac structure and function-report pending Continue telemetry monitoring to assess for arrhythmias Continue metoprolol succinate increased to 25 mg daily. Increase as heart rate will tolerate. Patient to undergo cardiac cath on Tuesday with Dr. Lozoya Further recommendations pending patient course Nurse practitioner note has been reviewed by physician. Signing provider agrees with the documented findings, assessment, and plan of care. Objective - Vital Signs Vital signs: Vital Signs Temp 98.2 F 12/12/22 08:00 Pulse 65 12/12/22 08:00 Resp 18 12/12/22 08:00 BP 139/86 12/12/22 08:00 Pulse Ox 96 12/12/22 08:00 FiO2 Intake & Output 12/11/22 12/12/22 12/12/22 18:59 06:59 18:59 Intake Total 668 255 Output Total 250 400 Balance 418 -400 255 Intake: Oral 668 255 Output: Urine 250 400 Other: Voiding Method Toilet Toilet Urinal Urinal # Voids 3 1 # Bowel Movements 1 - Labs CBC & Chem 7: 12/10/22 10:18 12/10/22 10:18
--- NOTE | 2022-12-12 11:05 | CA ---
Transthoracic Echo Report Name: Camilo Farley Age: 57 Gender: M : 1965 Exam Date: 12/10/2022 13:14 Exam Location: [facility] Ht (in): 73 Wt (lb): 246 Ordering Physician: Delfina Mcintosh Attending/Referring Phys: [id number], [address]na [address] Machinery Inspector NS Procedure CPT: Indications: V-fib in OR, LV function Cardiac Hx: Technical Quality: Fair Contrast 1: Total Dose (mL): Contrast 2: Total Dose (mL): MEASUREMENTS (Male / Female) Normal Values 2D ECHO LV Diastolic Diameter PLAX 4.9 cm 4.2 - 5.9 / 3.9 - 5.3 cm LV Systolic Diameter PLAX 2.4 cm IVS Diastolic Thickness 1.1 cm 0.6 - 1.0 / 0.6 - 0.9 cm LVPW Diastolic Thickness 1.0 cm 0.6 - 1.0 / 0.6 - 0.9 cm LV Relative Wall Thickness 0.4 LA Volume 40.6 cm??? 18 - 58 / 22 - 52 cm??? M-MODE Aortic Root Diameter MM 3.2 cm AV Cusp Separation MM 2.2 cm DOPPLER AV Peak Velocity 136.3 cm/s AV Peak Gradient 7.4 mmHg LVOT Peak Velocity 94.4 cm/s LVOT Peak Gradient 3.6 mmHg MV Area PHT 4.1 cm??? Mitral E Point Velocity 50.6 cm/s Mitral A Point Velocity 67.4 cm/s Mitral E to A Ratio 0.8 MV Deceleration Time 187.3 ms TR Peak Velocity 229.1 cm/s TR Peak Gradient 21.0 mmHg PV Peak Velocity 55.4 cm/s PV Peak Gradient 1.2 mmHg FINDINGS Left Ventricle Left ventricular cavity size normal. Normal left ventricular systolic function with no obvious regional wall motion abnormalities. Left ventricular wall thickness at upper limits of normal. Left ventricular ejection fraction is estimated at 55-60 %. Right Ventricle Normal right ventricular size and function. Right ventricular systolic pressure within normal limits. Right Atrium Normal right atrial size. Left Atrium Normal left atrial size. Mitral Valve Structurally normal mitral valve. No mitral stenosis, regurgitation or prolapse. Aortic Valve No aortic valve stenosis or regurgitation. Tricuspid Valve Structurally normal tricuspid valve. Mild tricuspid regurgitation. Pulmonic Valve Structurally normal pulmonic valve. Pericardium No pericardial effusion. Aorta Normal size aortic root and proximal ascending aorta. CONCLUSIONS Normal LV size and systolic function Normal RV size and systolic function Structurally normal heart on 2-D echo Previewed by: Dr. Richard Dawson MD (Electronically Signed) Final Date: 12 December 2022 11:05
--- NOTE | 2022-12-12 11:07 | P.PN ---
Progress Note - Text Progress Note Date: 12/12/22 Patient remains stable. He has minimal complaints of umbilical pain. He denies any chest pain. Patient scheduled for cardiac tomorrow. On exam vital signs are stable. Abdomen soft. Incision is clean dry intact. Status post repair of umbilical hernia with subsequent V. tach. Patient will undergo cardiac workup.
--- NOTE | 2022-12-12 11:26 | P.PN ---
Subjective Progress Note Date: 12/12/22 Patient is a 57-year-old male with cervical disc disease, memory impairment, and BPH who presented to the hospital for open repair of incarcerated umbilical hernia with mesh. Apparently during the operation the patient went into ventricular fibrillation as they were closing the fascia. He did require some chest compressions. After approximately 1 minute the patient had return of nor mal sinus rhythm. He did not receive defibrillation. Patient was extubated and taken to recovery. Unfortunately the OR telemetry monitors are unable to save or print events therefor no rhythm strip is available for interpretation. Patient seen and examined at bedside he denies any chest pain or shortness of breath overnight. He did have a bowel movement. He is still having some distention and abdominal pain but it's well-controlled. Vital signs reviewed General: nontoxic, no distress, appears at stated age Cardiovascular: S1S2 reg, no murmur, positive posterior tibial pulse bilateral, Lungs: CTA bilateral, no rhonchi, no rales , no accessory muscle use Abdominal: soft, nontender to palpation, no guarding, no appreciable organomegaly Ext: no gross muscle atrophy, no edema, no contractures, abdominal binder in place Neuro: CN II-XI grossly intact, no focal neuro deficits Psych: Alert, oriented, appropriate affect Assessment: Incarcerated umbilical hernia status post open repair with mesh Probable ventricular fibrillation arrest, less than 1 minute of chest compressions, not requiring defib Chronic: Anxiety ADHD Headache CHronic pain Prior syncopal episodes related to pain Degenerative disc disease Data Review: Telemetry reviewed. No arrhythmias noted. Vital signs reviewed temperature 98.2, respirations 18, pulse 65, blood pressure 139/86, O2 sat 96% on room air Echocardiogram ejection fraction 55-60% and normal left ventricle and right ventricle size and function Plan: -Cardiology note reviewed: Plan is for cardiac cath on Tuesday -Telemetry reviewed: No significant events -Continue with metoprolol 12.5 mg daily -Century 5/325 one to 2 tabs every 4-6 hours as needed for pain -Neurontin 1200 mg 3 times daily -Dilaudid as needed for pain (patient has not required Dilaudid and pain has been controlled with norco) -Toradol 15 mg every 6 hours scheduled -Zoloft 150 mg daily -Flomax 0.4 mg at night Thank you for allowing us to participate in the care of this pleasant patient. Do not hesitate to contact us with questions. Someone can be reached from the [facility] hospitalist group all hours of the day at [phone] or via perfect serve. This dictation was prepared using [employer] voice recognition software. Though every attempt is made to correct errors during during dictation some may still exist. Objective - Vital Signs Vital signs: Vital Signs Temp 98.2 F 12/12/22 08:00 Pulse 65 12/12/22 08:00 Resp 18 12/12/22 08:00 BP 139/86 12/12/22 08:00 Pulse Ox 96 12/12/22 08:00 FiO2 Intake & Output 12/11/22 12/12/22 12/12/22 18:59 06:59 18:59 Intake Total 668 255 Output Total 250 400 Balance 418 -400 255 Intake: Oral 668 255 Output: Urine 250 400 Other: Voiding Method Toilet Toilet Toilet Urinal Urinal Urinal # Voids 3 1 # Bowel Movements 1 - Labs CBC & Chem 7: 12/10/22 10:18 12/10/22 10:18
[2022-12-12] MEDS: TAMSULOSIN 0.4 MG CAP.ER.24H PO SCH (20:58)
[2022-12-12] MEDS ORDERED: SODIUM CHLORIDE 0.9% 1,000 ML in EMPTY BAG 1 BAG IV SCH (23:00)
[2022-12-13 01:22] LABS: Glucose,Whole Blood 108 mg/dL (70-110)
[2022-12-13] MEDS ORDERED: ATORVASTATIN 80 MG TAB PO ONE (05:00)
[2022-12-13] MEDS ORDERED: ASPIRIN 325 MG TAB PO ONE (05:00)
[2022-12-13 05:10] VITALS: PULSE 77
[2022-12-13] MEDS: D5-0.45% NACL WITH KCL 20MEQ/L 1,000 ML IV SCH (06:41)
[2022-12-13] MEDS: LACTATED RINGERS 1,000 ML IV SCH (06:41)
[2022-12-13] MEDS ORDERED: HEPARIN SODIUM 1,000 UN/ML (10ML VL) ONE (07:51)
[2022-12-13] MEDS ORDERED: fentaNYL (PF) 50 MCG/ML 2 ML AMP ONE (07:51)
[2022-12-13] MEDS ORDERED: IV FLUID CONTINUATION 1,000 ML IV ONE (08:01)
[2022-12-13] MEDS ORDERED: MIDAZOLAM 2 MG/2 ML VIAL IV ONE (08:01)
[2022-12-13] MEDS ORDERED: LIDOCAINE 1% INJ 10MG/ML (5 ML VIAL-PF) SQ ONE (08:02)
[2022-12-13] MEDS ORDERED: fentaNYL (PF) 50 MCG/ML 2 ML AMP IV ONE (08:02)
[2022-12-13] MEDS ORDERED: VERAPAMIL SYRINGE (5 MG/10 ML) INTRAARTER ONE (08:04)
[2022-12-13] MEDS ORDERED: HEPARIN SODIUM 1,000 UN/ML (10ML VL) IV ONE (08:08)
[2022-12-13] MEDS ORDERED: IOPAMIDOL-370 125ML BTL INJ ONE (08:15)
--- NOTE | 2022-12-13 08:22 | P.CARDCATH ---
Description of Procedure: PROCEDURES PERFORMED: Left heart catheterization, bilateral coronary angiography INDICATION: Ventricular fibrillation CONSENT:I have discussed the risks, benefits and alternative therapies for the above-mentioned procedure and for both sedation/analgesia as well as necessary blood product administration, if indicated, as they pertain to this patient. The patient has indicated understanding and acceptance of the risks and procedures discussed. PROCEDURE: After the risks, benefits and alternatives of the above mentioned procedure explained in detail with the patient, informed consent was obtained. Patient was taken to the catheterization lab and prepped and draped in usual fashion. 1% lidocaine was used to anesthetize the right radial artery. A 6- Cambodian sheath was placed in the right radial artery using modified Seldinger technique. Left coronary angiography was performed with a 5-Cambodian JL 3.5 catheter and right coronary angiography was performed with a 5-Cambodian JR5 catheter in various views. A 5-Cambodian FR5 catheter was inserted into the left ventricle and pressure measurements were obtained. Patient did incidentally have atypical chest pain during procedure which was more sharp in nature did not appear related to any underlying coronary artery disease. Less likely microvascular dysfunction. The right radial sheath was removed and a TR band was placed with hemostasis achieved. The patient tolerated the procedure well. Patient was transported back to the post catheterization holding area in stable condition. Conscious Sedation: Patient was monitored under the direct supervision of myself for conscious sedation using Versed and fentanyl for a total duration of 15 minutes HEMODYNAMICS: Aortic 101/66 LV: 105/1, LVEDP 6 SELECTIVE CORONARY ARTERIOGRAPHY: LEFT MAIN: The left main is a large caliber vessel which bifurcates into the LAD and circumflex. There is no significant stenosis. LEFT ANTERIOR DESCENDING CORONARY ARTERY: LAD is a large caliber vessel which wraps around to the apex. There is no significant stenosis. LEFT CIRCUMFLEX CORONARY ARTERY: Left circumflex is a moderate caliber vessel without significant stenosis. RIGHT CORONARY ARTERY: The right coronary artery is a large caliber vessel which gives off a PDA and PLV branch and is the dominant vessel. There is no sign ificant stenosis. FINAL IMPRESSION: 1. Normal coronary arteries as described above. 2. Normal left sided filling pressures PLAN: 1. Aggressive risk factor modification per most recent ACC/AHA guidelines. 2. Follow-up in the office in 1-2 weeks.
[2022-12-13] MEDS ORDERED: METOPROLOL SUCCINATE (ER) 25 MG TAB.ER.24H PO SCH (09:00)
[2022-12-13] MEDS ORDERED: LACTULOSE 20 GM/30 ML CUP PO ONE (10:10)
[2022-12-13] MEDS: ASCORBIC ACID 500 MG TAB PO SCH (10:12)
[2022-12-13] MEDS: SERTRALINE 50 MG TAB PO SCH (10:13)
[2022-12-13] MEDS: HEPARIN SODIUM,PORCINE/PF 5,000 UNIT/0.5 ML SYRINGE SQ SCH (10:13)
[2022-12-13] MEDS: GABAPENTIN 300 MG CAP PO SCH (10:13)
[2022-12-13] MEDS ORDERED: DOCUSATE 100 MG CAP PO SCH (10:15)
--- NOTE | 2022-12-13 10:56 | P.PN ---
Subjective Progress Note Date: 12/13/22 Patient is a 57-year-old male with cervical disc disease, memory impairment, and BPH who presented to the hospital for open repair of incarcerated umbilical hernia with mesh. Apparently during the operation the patient went into ventricular fibrillation as they were closing the fascia. He did require some chest compressions. After approximately 1 minute the patient had return of normal sinus rhythm. He did not receive defibrillation. Patient was extubated and taken to recovery. Unfortunately the OR telemetry monitors are unable to save or print events therefor no rhythm strip is available for interpretation. Cardiac cath showed clean coronary arteries. Echocardiogram showed LVEF 55-60%. Patient seen and examined at bedside. No acute events overnight. Denies any chest pain, shortness of breath, abdominal pain, nausea, vomiting, diarrhea, constipation, or urinary complaints. Vital signs reviewed General: nontoxic, no distress, appears at stated age Cardiovascular: S1S2 reg, no murmur, positive posterior tibial pulse bilateral, Lungs: CTA bilateral, no rhonchi, no rales , no accessory muscle use Abdominal: soft, nontender to palpation, no guarding, no appreciable or ganomegaly Ext: no gross muscle atrophy, no edema, no contractures, abdominal binder in place Neuro: CN II-XI grossly intact, no focal neuro deficits Psych: Alert, oriented, appropriate affect Assessment: Incarcerated umbilical hernia status post open repair with mesh Probable ventricular fibrillation arrest, less than 1 minute of chest compressions, not requiring defib Chronic: Anxiety ADHD Headache CHronic pain Prior syncopal episodes related to pain Degenerative disc disease Data Review: Vital signs reviewed temperature 98.2, respirations 16, pulse 77, blood pressure 132/82, O2 sat 95% on room air Plan: -Cardiac cath report reviewed: Shows normal coronary arteries, normal left-sided filling pressures. -Cardiology following, increase metoprolol to 25 mg daily -Pain controlled with oral Tylenol, [place], and IV Dilaudid as needed Patient is currently medically optimized for discharge home. Pending final cardiology recommendations. Thank you for allowing us to participate in the care of this pleasant patient. Do not hesitate to contact us with questions. Someone can be reached from the [facility]Note 3] hospitalist group all hours of the day at [phone] or via perfect serve. Objective - Vital Signs Vital signs: Vital Signs Temp 98.2 F 12/13/22 04:00 Pulse 77 12/13/22 04:00 Resp 16 12/13/22 04:00 BP 132/82 12/13/22 04:00 Pulse Ox 95 12/13/22 04:00 FiO2 Intake & Output 12/12/22 12/13/22 12/13/22 18:59 06:59 18:59 Intake Total 973 993 200 Output Total 850 Balance 973 143 200 Intake: IV 343 200 Invasive Line 1 343 Intake, IV Titration 650 Amount Sodium Chloride 0.9% 1, 650 000 ml In Empty Bag 1 bag @ 1 ML/KG/HR 111.8 mls/ hr IV [id number] [facility] Rx#: [id number] Oral 973 0 Output: Urine 850 Other: Voiding Method Toilet Toilet Urinal Urinal # Voids 3 1 # Bowel Movements 1 - Labs CBC & Chem 7: 12/10/22 10:18 12/10/22 10:18
[2022-12-13 11:18] VITALS: RESP 18; TEMP 98
--- NOTE | 2022-12-13 13:57 | P.DS ---
Providers Date of admission: 12/10/22 16:36 Expected date of discharge: 12/13/22 Attending physician: Gilmar Wells Consults: 12/10/22 10:08 Consult Physician Stat Consulting Provider: Kevon Lozoya Consult Reason/Comments: V fib in O.R, pt. in PACU Do you want consulting provider notified?: Already Contacted 12/10/22 14:41 Consult Physician Routine Consulting Provider: Cyndi Michaud Consult Reason/Comments: Medical managment Do you want consulting provider notified?: Yes Primary care physician: Sourav Roberson MD Hospital Course: Discharge diagnosis 1. Incarcerated umbilical hernia status post open repair of incarcerated umbilical hernia with mesh 2. Ventricle fibrillation, with return to sinus mechanism with 1 minute of chest compressions, not requiring defibrillation Hospital course This is a 57-year-old male with an incarcerated umbilical hernia he is status post open repair of hernia with mesh placement. At the end of the case when fascia was being closed patient suddenly went into ventricle fibrillation. Chest compressions were administered. Patient did not require defibrillation. Patient was seen evaluated by cardiology. Patient underwent heart catheterization today. Results showed normal coronary arteries and normal left- sided filling pressure. Cardiology has cleared patient for discharge. Patient's pain is controlled. He is tolerating diet. He is having flatus and small BM. He is afebrile. He has been up and ambulating. He is stable for discharge. Please refer to chart for any further details. Physician Director Internal Control note has been reviewed by physician. Signing provider agrees with the documented findings, assessment, and plan of care. I have personally seen and examined the patient, reviewed the DRAGLINE OPERATOR HELPER /PAs history, exam and MDM and agree with the assessment and plan as written. Based on total visit time, I have performed more than 50% of the visit. As above: Patient doing well at this time. Cardiac catheterization reportedly normal. Etiology for arrhythmia remains unclear. He has been cleared for discharge by cardiology. Recommend cardiology follow-up. Patient will follow up with me in the office this week. Patient Condition at Discharge: Stable Plan - Discharge Summary Discharge Rx Participant: No New Discharge Prescriptions: New Metoprolol Succinate (ER) [Toprol XL] 25 mg PO DAILY #90 tab Docusate [Colace] 100 mg PO BID #30 capsule Continue HYDROcodone/APAP 10-325MG [[place] 10-325] 1 tab PO TID PRN PRN Reason: Pain No Action tiZANidine [Zanaflex] 4 mg PO Q6H PRN PRN Reason: Muscle Pain Tamsulosin [Flomax] 0.4 mg PO HS Ibuprofen 800 mg PO Q8H traZODone HCL 50 mg PO HS PRN PRN Reason: Insomnia Sertraline [Zoloft] 150 mg PO QAM Gabapentin [Neurontin] 1,200 mg PO TID Butalbital/Aspirin/Caffeine [Hmjgvq-Wbakmfr-Jmgvssze 50-325-40 mg] 1 tab PO Q4H PRN PRN Reason: Migraine Headache guaiFENesin-DM 600/30MG [Mucinex Dm] 1 tab PO QAM Vitamin B Complex 1 capsule PO QAM Pseudoephedrine HCl [Sudafed 24-Hour] 240 mg PO QAM PRN PRN Reason: Allergy Symptoms Ascorbic Acid [Vitamin C chew] 500 mg PO QAM Discharge Medication List Ibuprofen 800 mg PO Q8H 03/23/19 [History] Tamsulosin [Flomax] 0.4 mg PO HS 03/23/19 [History] tiZANidine [Zanaflex] 4 mg PO Q6H PRN 03/23/19 [History] Butalbital/Aspirin/Caffeine [Irjqox-Myleyco-Kjwohjcd 50-325-40 mg] 1 tab PO Q4H PRN 04/23/20 [History] Gabapentin [Neurontin] 1,200 mg PO TID 04/23/20 [History] Sertraline [Zoloft] 150 mg PO QAM 04/23/20 [History] traZODone HCL 50 mg PO HS PRN 04/23/20 [History] Ascorbic Acid [Vitamin C chew] 500 mg PO QAM 12/07/22 [History] HYDROcodone/APAP 10-325MG [Pendleton 10-325] 1 tab PO TID PRN 12/07/22 [History] Pseudoephedrine HCl [Sudafed 24-Hour] 240 mg PO QAM PRN 12/07/22 [History] Vitamin B Complex 1 capsule PO QAM 12/07/22 [History] guaiFENesin-DM 600/30MG [Mucinex Dm] 1 tab PO QAM 12/07/22 [History] Docusate [Colace] 100 mg PO BID #30 capsule 04/03/23 [Rx] Metoprolol Succinate (ER) [Toprol XL] 25 mg PO DAILY #90 tab 12/13/22 [Rx] Follow up Appointment(s)/Referral(s): Gilmar Wells MD [Medical Doctor] - 1 Week Kevon Lozoya DO [STAFF PHYSICIAN] - 1 Week Activity/Diet/Wound Care/Special Instructions: Please have medicine service complete discharge med rec No driving while taking [place] No lifting over 10 pounds You may shower. No soaking or tub baths for 2 weeks Very light activity until you are reevaluated at your follow up appointment with your surgeon Discharge Disposition: HOME SELF-CARE
[2022-12-13 15:11] VITALS: BP 128/87
== END 2022-12-13 15:39 | disposition home or self-care (01) | DRG 988 ==
LOC: OR 06:46 → 3SCARD 11:14 → OR 16:21 → 3SCARD 16:36
PROVIDERS: ADMIT Surgery; ATTEND Surgery
PROC: 5A12012 Performance of Cardiac Output, Single, Manual (ICD-10-PCS; principal; 2022-12-10 09:00)
PROC: 0WUF0JZ Supplement Abdominal Wall with Synthetic Substitute, Open Approach (ICD-10-PCS; principal; 2022-12-10 09:00)
PROC: B2111ZZ Fluoroscopy of Multiple Coronary Arteries using Low Osmolar Contrast (ICD-10-PCS; 2022-12-13)
PROC: 4A023N7 Measurement of Cardiac Sampling and Pressure, Left Heart, Percutaneous Approach (ICD-10-PCS; 2022-12-13)
DX: I49.01 Ventricular fibrillation (principal); K42.0 Umbilical hernia with obstruction, without gangrene; N40.0 Benign prostatic hyperplasia without lower urinary tract symptoms; H91.93 Unspecified hearing loss, bilateral; G89.29 Other chronic pain; F90.9 Attention-deficit hyperactivity disorder, unspecified type; F41.9 Anxiety disorder, unspecified; M50.30 Other cervical disc degeneration, unspecified cervical region; M25.519 Pain in unspecified shoulder; R41.3 Other amnesia; R55 Syncope and collapse; R07.89 Other chest pain; Z87.891 Personal history of nicotine dependence; Z79.899 Other long term (current) drug therapy; Z88.7 Allergy status to serum and vaccine; Z87.828 Personal history of other (healed) physical injury and trauma
CPT/HCPCS: 71045; 80053; 80061; 83036; 83735; 84484; 85025; 88302; 93005; 93306; 93458

== ENCOUNTER → 2025-04-05 | Outpatient (CLI) | payer MEDICARE ==
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
== END | disposition home or self-care (01) ==
LOC: RADUSWWP 13:11
DX: R10.32 Left lower quadrant pain (principal)